=== PATIENT | female | born 1970 | race Caucasian/White ===

== ENCOUNTER 2017-01-12 12:06 | Emergency (ER) | payer MEDICAID ==
--- NOTE | 2017-01-12 12:19 | EDPHY ---
H & P Time Seen by Provider: 01/12/17 12:18 HPI/ROS: CHIEF COMPLAINT: [ ] HISTORY OF PRESENT ILLNESS: [Need 4: Location, Duration, Severity, Quality, Context, Timing Modifying Factors, Associated S&S] REVIEW OF SYSTEMS: A comprehensive 10 point review of systems is otherwise negative aside from elements mentioned in the history of present illness. Source: Patient Exam Limitations: No limitations - Medical/Surgical History Hx Diabetes: No - Social History Smoking Status: Never smoked Allergies/Adverse Reactions: Sulfa (Sulfonamide Antibiotics) Allergy (Verified 06/28/15 09:27) Departure - Departure Referrals: Toño Evans MD [Primary Care Provider] - As per Instructions
[2017-01-12 12:24] VITALS: BP 116/75; PULSE 69; RESP 18; TEMP 97.5; O2SAT 96
--- NOTE | 2017-01-12 12:32 | UCPHY ---
H & P Time Seen by Provider: 01/12/17 12:18 Patient Type: New HPI/ROS: Chief Complaint: Right heel pain HPI: The patient presents to the ED with 5 days of atraumatic right heel pain. The patient does report a prior history of ligamentous injury involving her right knee. The patient does report that she is frequently in boots with secondary to her job. She is on her feet approximately 9-10 hours a day. The patient has a sharp area of point tenderness over her right lateral posterior calcaneus. The patient has no complaints of numbness, weakness or additional injury. REVIEW OF SYSTEMS: Neuro: no headache, numbness, weakness Musculoskeletal: as above Skin: no abrasion or lacerations Smoking Status: Never smoked Physical Exam: General appearance: alert no distress Right ankle: There is no swelling and tenderness over the medial lateral malleolus . Ankle joint is stable and there is no tenderness over the Achilles tendon. The foot is tender over the lateral posterior inferior aspect of the right calcaneus Neurologic exam: The patient has normal sensation and motor function distal to the injury. Vascular exam: Normal pulses and capillary refill in the foot DIFFERENTIAL DIAGNOSIS: After history and physical exam differential diagnosis was considered for ankle injury including sprain, fracture, dislocation and soft tissue injury. Constitutional: Initial Vital Signs Temperature (C) 36.4 C 01/12/17 12:22 Heart Rate 69 01/12/17 12:22 Respiratory Rate 18 01/12/17 12:22 Blood Pressure 116/75 01/12/17 12:22 O2 Sat (%) 96 01/12/17 12:22 O2 Delivery Mode Room Air Allergies/Adverse Reactions: Sulfa (Sulfonamide Antibiotics) Allergy (Verified 01/12/17 12:21) Home Medications: Medication Instructions Recorded Synthroid 01/12/17 Medical Decision Making - Diagnostics Imaging Results: Right ankle x-ray: Negative for acute fracture or dislocation. Images reviewed by myself. ED Course/Re-evaluation: The patient presents to the ED with a musculoskeletal injury involving the right ankle. There is no evidence of an obvious fracture. I do believe the patient may have a heel spur. The patient will be instructed to use ibuprofen as well as a flat, hard soled boot. The patient is referred to our on-call foot and ankle specialist for any unimproved symptoms. Departure - Departure Disposition: Home, Routine, Self-Care Clinical Impression: Heel spur Condition: Good Instructions: Heel Spur (ED) Additional Instructions: 1. Take Ibuprofen or Motrin 600 mg by mouth three times a day. 2. Please wear a hard soled flat soled shoe/boot. 3. Please follow up with the foot and ankle specialist you have been referred to for any pain that persists past 5-7 days. Referrals: Brant Sigala MD [Medical Doctor] - As per Instructions - PQRS PQRS Measurement: NA
== END 2017-01-12 12:54 | disposition home or self-care (01) ==
LOC: CED 12:06
DX: M77.31 Calcaneal spur, right foot (principal)
CPT/HCPCS: 73610-PO; 99203-PO; G0463-PO

== ENCOUNTER 2017-03-26 10:13 | Emergency (ER) | payer MEDICAID ==
[2017-03-26 10:23] VITALS: BP 116/70; PULSE 64; RESP 14; TEMP 97.7; O2SAT 98
[2017-03-26 10:39] LABS: COLOR YELLOW; LEUKOCYTE ESTERASE,URINE 1+ (NEGATIVE); NITRITE,URINE NEGATIVE (NEGATIVE)
--- NOTE | 2017-03-26 10:48 | EDPHY ---
H & P Time Seen by Provider: 03/26/17 10:24 HPI/ROS: This patient has dysuria, 3 days duration in urinary frequency similar to previous bladder infections. She reports no exacerbating factors. Symptoms are similar to prior bladder infections. She tried taking 1 SMZ antibiotic that she give her horses yesterday but has not had improvement. 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 ROS: No fevers. No other constitutional symptoms : No back pain. No vaginal discharge. Last menstrual. Normal timing 1 week ago GI: No nausea or vomiting 5 point ROS is otherwise negative Past Medical/Surgical History: Otherwise healthy except for hypothyroidism Smoking Status: Never smoked Physical Exam: Physical Exam Vital signs are normal. General: No acute distress Lungs: No respiratory distress. Cardiac: Brisk capillary refill is intact throughout. Back: No CVA tenderness Abdomen: Soft with mild suprapubic tenderness. No guarding or rebound. Skin: No rash or pallor. Neuro: Alert Initial differential diagnosis: Cystitis, yeast infection, urethral irritation Constitutional: Initial Vital Signs Temperature (C) 36.5 C 03/26/17 10:20 Heart Rate 64 03/26/17 10:20 Respiratory Rate 14 03/26/17 10:20 Blood Pressure 116/70 03/26/17 10:20 O2 Sat (%) 98 03/26/17 10:20 Allergies/Adverse Reactions: Sulfa (Sulfonamide Antibiotics) Allergy (Verified 03/26/17 10:20) Home Medications: Medication Instructions Recorded Synthroid 01/12/17 Cephalexin [Keflex (*)] 500 mg PO TID #15 cap 03/26/17 MDM/Departure - MDM Diagnostics: UA consistent with UTI. Positive leuk Estrace, pyuria, bacturia ED Course/Re-evaluation: I counseled the patient regarding cystitis. She has no clinical evidence to suggest pyelonephritis at this point. She appears well clinically. - Depart Disposition: Home, Routine, Self-Care Clinical Impression: Cystitis Condition: Good Instructions: Urinary Tract Infection in Women (ED) Additional Instructions: Diagnosis: Bladder infection Plan: Drink plenty fluids Keflex antibiotic Return for any worsening despite the treatment plan Prescriptions: Cephalexin [Keflex (*)] 500 mg PO TID #15 cap Referrals: Toño Evans MD [Primary Care Provider] - As per Instructions
[2017-03-26 10:52] LABS: BACTERIA 1+ /hpf (NONE SEEN)
[2017-03-26 10:53] LABS: RBC,URINE 0-1 /hpf (0-3); WBC,URINE 15-25 /hpf (0-3)
== END 2017-03-26 10:56 | disposition home or self-care (01) ==
LOC: CED 10:13
DX: N30.90 Cystitis, unspecified without hematuria (principal); B96.89 Other specified bacterial agents as the cause of diseases classified elsewhere
CPT/HCPCS: 81003-PO; 81015-PO; 81025-PO

== ENCOUNTER 2017-05-26 13:02 | Emergency (ER) | payer MEDICAID ==
[2017-05-26 13:32] VITALS: RESP 16; TEMP 98.6
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
[2017-05-26 14:32] VITALS: BP 153/86; PULSE 66; O2SAT 95
== END 2017-05-26 14:30 | disposition home or self-care (01) ==
LOC: CED 13:02
DX: S92.354A Nondisplaced fracture of fifth metatarsal bone, right foot, initial encounter for closed fracture (principal); X58.XXXA Exposure to other specified factors, initial encounter; Y92.410 Unspecified street and highway as the place of occurrence of the external cause
CPT/HCPCS: 73630-PO; L4386

== ENCOUNTER 2017-11-13 10:40 | Emergency (ER) | payer MEDICAID ==
[2017-11-13 11:04] VITALS: TEMP 97.9
[2017-11-13] MEDS ORDERED: diphenhydrAMINE 25 MG CAP PO ONE ×2 (11:38→11:55)
[2017-11-13] MEDS ORDERED: FAMOTIDINE 20 MG TAB PO ONE (11:38)
[2017-11-13] MEDS ORDERED: predniSONE 20 MG TAB PO ONE (11:38)
[2017-11-13] MEDS ORDERED: IPRATROPIUM/ALBUTEROL 3 ML DEYVIAL IH ONE (11:38)
--- NOTE | 2017-11-13 12:59 | EDPHY ---
H & P Stated Complaint: sore throat Time Seen by Provider: 11/13/17 10:58 HPI/ROS: CHIEF COMPLAINT: Sore throat, short of breath/difficulty breathing HISTORY OF PRESENT ILLNESS: This is a 47-year-old female who presents with sore throat, sensation of neck or lymph nodes swelling, and shortness of breath. She has not had fever or myalgias. This began yesterday and seemed to worsen after dinner. She took Advil and Tylenol with minimal relief. She has also had a mild nonproductive cough. Last night she had bilateral earaches; these have resolved. She has had a sensation that she "can't breathe" for the last 3 months or so she saw her primary care physician and was diagnosed with anxiety. She was given Valium and another medication that she thinks might have been an antidepressant. She discontinued these medication a month or so ago, as they were not helping. She does not think that she has anxiety. REVIEW OF SYSTEMS: A ten point review of systems was performed and is negative with the exception of the items mentioned in the HPI. Past medical history: Negative Past surgical history: Negative Social history: She is here with her . 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 No tobacco use. General Appearance: Alert. Vital signs reviewed. Vital signs are normal at triage. Eyes: Pupils equal and round, no conjunctival injection, no discharge. Anicteric. ENT, Mouth: Mucous membranes are moist, no oropharyngeal erythema or edema. Dentition appears to be in good repair. No trismus. Neck: No lymphadenopathy, supple. Trachea midline. No thyromegaly. Respiratory: Lungs are clear to auscultation; no wheezes, rales, or rhonchi. Cardiovascular: Regular rate and rhythm; no murmur, rub, or gallop. Gastrointestinal: Abdomen is soft and nontender, no masses or organomegaly, bowel sounds normal. Skin: Warm and dry, no rashes on exposed skin, normal color. Back: Nontender to palpation over the thoracolumbar spine. No CVAT. Extremities: No lower extremity edema, no calf tenderness or swelling. Neurological: Alert and oriented. Moving all four extremities easily and equally. SHARAN. EOMI. Tongue midline. Facial expression symmetric. Psychiatric: Normal affect. - Personal History LMP (Females 10-55): Unknown Current Tetanus/Diphtheria Vaccine: Yes Current Tetanus Diphtheria and Acellular Pertussis (TDAP): Yes - Medical/Surgical History Hx Asthma: No Hx Chronic Respiratory Disease: No Hx Diabetes: No Hx Cardiac Disease: No Hx Renal Disease: No Hx Cirrhosis: No Hx Alcoholism: No Hx HIV/AIDS: No Hx Splenectomy or Spleen Trauma: No Other PMH: fusion L1-5. lumpectomy - Social History Smoking Status: Never smoked Constitutional: Initial Vital Signs Temperature (C) 36.6 C 11/13/17 11:01 Heart Rate 76 11/13/17 11:01 Respiratory Rate 20 11/13/17 11:01 Blood Pressure 116/71 11/13/17 11:01 O2 Sat (%) 97 11/13/17 11:01 O2 Delivery Mode Room Air Allergies/Adverse Reactions: Sulfa (Sulfonamide Antibiotics) Allergy (Verified 11/13/17 10:59) Home Medications: Medication Instructions Recorded Albuterol [Proventil Inhaler HFA 1 - 2 puffs IH Q4 #1 mdi 11/13/17 (*)] Levothyroxine 11/13/17 Lidocaine 2% Viscous 5 ml PO TID PRN #100 ml 11/13/17 Medical Decision Making ED Course/Re-evaluation: Healthy 47-year-old with some symptoms that are suggestion of an infectious process--sore throat, cough--and some symptoms that are suggestive of an allergic reaction--sensation of her throat closing and difficulty breathing. Difficulty breathing seems to have been present on and off for the last 3-4 months and was treated by her primary care physician with antidepressant and antianxiety medication. Possibility of vocal fold dysfunction was apparently raised. These medications did not help and she discontinued them a month ago. She has continued with the sensation of trouble breathing, throat closing. Today's soft tissue neck x-ray shows a possible small radiodense sliver in the cervical esophagus. I reviewed the x-rays and the radiology report. I spoke with Dr. Jorge, gastroenterology, and he recommends GI follow-up for discussion about endoscopy to evaluate for any abnormality that could cause her to have food hang up. He recommends viscus lidocaine as a symptomatic treatment. She was given a GI cocktail in the emergency department and prescription for 2% viscous lidocaine, 5 cc up to 3 times daily. She had improvement with a DuoNeb in the emergency department. She is given a prescription for an albuterol inhaler to use as needed. Influenza and strep testing was negative. I do not recommend antibiotics at this point in time. Differential Diagnosis: Differential diagnosis includes but is not limited to allergic reaction, vocal fold dysfunction, epiglottitis, retropharyngeal abscess, pharyngitis, esophageal abnormality, and anxiety. - Data Points Medications Given: Discontinued Medications Al Hydroxide/Mg Hydroxide (Maalox Susp) 30 ml PO ONCE ONE Stop: 11/13/17 13:03 Last Admin: 11/13/17 13:18 Dose: 30 ml Albuterol/Ipratropium (Duoneb) 3 ml IH EDNOW ONE Stop: 11/13/17 11:39 Last Admin: 11/13/17 11:51 Dose: 3 ml Diphenhydramine HCl (Benadryl) 50 mg PO EDNOW ONE Stop: 11/13/17 11:39 Last Admin: 11/13/17 11:51 Dose: 50 mg Famotidine (Pepcid) 40 mg PO EDNOW ONE Stop: 11/13/17 11:39 Last Admin: 11/13/17 11:50 Dose: 40 mg Hyoscyamine Sulfate (Levsin, Hyomax-Sl) 0.25 mg PO ONCE ONE Stop: 11/13/17 13:03 Last Admin: 11/13/17 13:16 Dose: 0.25 mg Lidocaine (Lidocaine 2% Viscous) 15 ml PO ONCE ONE Stop: 11/13/17 13:03 Last Admin: 11/13/17 13:17 Dose: 15 ml Prednisone (Prednisone) 60 mg PO EDNOW ONE Stop: 11/13/17 11:39 Last Admin: 11/13/17 11:51 Dose: 60 mg Departure - Departure Disposition: Home, Routine, Self-Care Clinical Impression: Sore throat Condition: Good Instructions: Pharyngitis (ED), Esophageal Foreign Body (ED) Additional Instructions: As we discussed, it is not entirely clear what is causing your symptoms. I recommend that you follow up with Gastroenterology. I am referring you to Dr. Jorge. I spoke with him on the telephone. Call his office to schedule an appointment. I am also referring you to an crime scene specialist, Dr. Solange Guadalupe. In addition, I am referring you to Dr. Siomara Rivera--she is a primary care physician. In the meantime I am recommending that you use the albuterol inhaler 4 times a day or as needed when you feel short of breath. You can use the 2% viscous lidocaine, 5 cc at a time, up to 3 times daily. This will numb your throat and might provide some relief. Referrals: Toño Evans MD [Primary Care Provider] - As per Instructions Siomara Rivera MD [Medical Doctor] - As per Instructions Vitor Jorge MD [Medical Doctor] - As per Instructions Solange Guadalupe MD [Medical Doctor] - As per Instructions Prescriptions: Albuterol [Proventil Inhaler HFA (*)] 1 - 2 puffs IH Q4 #1 mdi Lidocaine 2% Viscous 5 ml PO TID PRN #100 ml PRN Reason: throat pain
[2017-11-13 13:01] VITALS: O2SAT 96
[2017-11-13] MEDS ORDERED: HYOSCYAMINE SULFATE 0.125 MG TAB PO ONE (13:02)
[2017-11-13] MEDS ORDERED: LIDOCAINE 2% VISCOUS 15 ML UDCUP PO ONE (13:02)
[2017-11-13] MEDS ORDERED: MAG HYDROX/AL HYDROX/SIMETH 30 ML UDCUP PO ONE (13:02)
[2017-11-13 13:05] VITALS: BP 127/65; PULSE 89; RESP 18
== END 2017-11-13 13:30 | disposition home or self-care (01) ==
LOC: CED 10:40
DX: J02.9 Acute pharyngitis, unspecified (principal)
CPT/HCPCS: 70360-PO; 87400-PO; 87880-PO; J7512